=== PATIENT | female | born 1960 | race African-American/Black ===

== ENCOUNTER → 2016-09-14 | Outpatient (CLI) | payer MEDICARE, MEDICAID ==
[~2016-09-14] MED LIST: ALBU17I INH; AMLO5TAB22 PO; ASPI81TA82 PO; ATOR20TA42 PO; CYCL-36 PO; IPRAAER IN; LORTA5 PO; MEDR4PAK3 PO; METR500I3 PO; OMEP20TA39 PO; ZOVI400T15 PO
[2016-09-14 10:13] LABS: AUTOMATED NEUTROPHIL # 3.1 TH/MM3 (1.8-7.7); BASOPHIL % 0.6 % (0.0-2.0); EOSINOPHIL # 0.1 TH/MM3 (0-0.4); EOSINOPHIL % 2.3 % (0.0-4.0); HEMATOCRIT 42.1 % (35.0-46.0); HEMO FLAGS DIFF FINAL; LYMPH % 30.7 % (9.0-44.0); LYMPHOCYTE # 1.6 TH/MM3 (1.0-4.8); MEAN CELL VOLUME 84.5 FL (80.0-100.0); MEAN CORPUSCULAR HEMOGLOBIN 27.6 PG (27.0-34.0); MEAN CORPUSCULAR HGB CONC 32.7 % (32.0-36.0); MONO % 5.3 % (0.0-8.0); NEUT % 61.1 % (16.0-70.0); PLATELET COUNT 280 TH/MM3 (150-450); RED BLOOD COUNT 4.98 MIL/MM3 (4.00-5.30); RED CELL DISTRIBUTION WIDTH 15.5 % (11.6-17.2); WHITE BLOOD COUNT 5.1 TH/MM3 (4.0-11.0)
[2016-09-14 10:43] LABS: WESTERGREN SEDIMENTATION RATE 19 mm/hr (0-30)
[2016-09-14 10:44] LABS: ANION GAP 5 MEQ/L (5-15); AST (GOT) 18 U/L (15-37); BICARBONATE 28.8 MEQ/L (21.0-32.0); BLOOD UREA NITROGEN 7 MG/DL (7-18); CHLORIDE 104 MEQ/L (98-107); GLOMERULAR FILTRATION RATE 86 ML/MIN (>89); GLUCOSE,FASTING 79 MG/DL (74-99); POTASSIUM 4.2 MEQ/L (3.5-5.1); SODIUM (NA) 138 MEQ/L (136-145)
[2016-09-14 10:48] LABS: ALKALINE PHOSPHATASE 86 U/L (45-117); ALT (GPT) 19 U/L (10-53); HDL CHOLESTEROL 49.1 MG/DL (40.0-60.0); LDL CHOLESTEROL 171 MG/DL (0-99); TOTAL BILIRUBIN ADULT 0.3 MG/DL (0.2-1.0)
[2016-09-14 10:59] LABS: RAPID PLASMA REAGIN SCREEN REACTIVE (NON-REACTVE)
[2016-09-17 07:18] LABS: HSV IGM 1 TITER ND TITER; HSV IGM II TITER ND TITER
[2016-09-17 23:55] LABS: HSV2 IGM IFA NEGATIVE (())
== END ==
LOC: ELAB 07:14
PROVIDERS: ATTEND Neuromusculoskeletal Medicine & OMM
DX: I10 Essential (primary) hypertension (principal); E55.9 Vitamin D deficiency, unspecified; C14.0 Malignant neoplasm of pharynx, unspecified; R59.9 Enlarged lymph nodes, unspecified
CPT/HCPCS: 36415; 80053; 80061; 82306; 82378; 85025; 85652; 86140; 86304; 86592; 86593; 86695; 86696

== ENCOUNTER → 2016-09-16 | Outpatient (CLI) | payer MEDICARE, MEDICAID | LOC: ELAB 09:37 | PROVIDERS: ATTEND Neuromusculoskeletal Medicine & OMM | DX: Z11.3 Encounter for screening for infections with a predominantly sexual mode of transmission (principal) | CPT/HCPCS: 36415; 86703 ==

== ENCOUNTER → 2016-09-29 | Outpatient (CLI) | payer MEDICARE, MEDICAID | LOC: ELAB 07:25 | PROVIDERS: ATTEND Psychiatry & Neurology Neurology | DX: E53.9 Vitamin B deficiency, unspecified (principal) | CPT/HCPCS: 36415; 82607; 82746 ==

== ENCOUNTER → 2016-10-28 | Outpatient (CLI) | payer MEDICARE, MEDICAID ==
[2016-10-28 11:58] LABS: HEMATOCRIT 42.4 % (35.0-46.0); MEAN CELL VOLUME 83.7 FL (80.0-100.0); MEAN CORPUSCULAR HEMOGLOBIN 28.2 PG (27.0-34.0); MEAN CORPUSCULAR HGB CONC 33.7 % (32.0-36.0); PLATELET COUNT 326 TH/MM3 (150-450); RED BLOOD COUNT 5.06 MIL/MM3 (4.00-5.30); RED CELL DISTRIBUTION WIDTH 15.1 % (11.6-17.2); REVIEW FLAG FINAL; WHITE BLOOD COUNT 6.8 TH/MM3 (4.0-11.0)
[2016-10-28 12:02] LABS: BLOOD, URINE SMALL (NEG); GLUCOSE,URINE NEG (NEG); KETONE, URINE NEG (NEG); MUCUS URINE FEW /lpf (OCC); NITRITE,URINE NEG (NEG); SQUAMOUS EPITHELIAL CELL URINE 1 /hpf (0-5); URINE COLOR YELLOW (YELLW/STRAW)
[2016-10-28 12:06] LABS: ANION GAP 7 MEQ/L (5-15); AST (GOT) 16 U/L (15-37); BICARBONATE 29.1 MEQ/L (21.0-32.0); BLOOD UREA NITROGEN 9 MG/DL (7-18); CHLORIDE 102 MEQ/L (98-107); GLOMERULAR FILTRATION RATE 92 ML/MIN (>89); GLUCOSE,FASTING 87 MG/DL (74-99); POTASSIUM 3.9 MEQ/L (3.5-5.1); SODIUM (NA) 138 MEQ/L (136-145)
[2016-10-28 12:09] LABS: ALKALINE PHOSPHATASE 82 U/L (45-117); ALT (GPT) 16 U/L (10-53); TOTAL BILIRUBIN ADULT 0.3 MG/DL (0.2-1.0)
[2016-10-28 12:23] LABS: WESTERGREN SEDIMENTATION RATE 18 mm/hr (0-30)
== END ==
LOC: ELAB 10:36
PROVIDERS: ATTEND Internal Medicine Rheumatology
DX: M32.8 Other forms of systemic lupus erythematosus (principal); M06.4 Inflammatory polyarthropathy; M79.7 Fibromyalgia; M15.0 Primary generalized (osteo)arthritis; Z79.899 Other long term (current) drug therapy
CPT/HCPCS: 36415; 80053; 81001; 85027; 85652; 86140

== ENCOUNTER → 2017-09-29 | Outpatient (CLI) | payer MEDICARE, MEDICAID | LOC: ELAB 06:56 | PROVIDERS: ATTEND Neuromusculoskeletal Medicine & OMM | DX: Z04.9 Encounter for examination and observation for unspecified reason (principal) ==